=== PATIENT | male | born 1940 | race Caucasian/White ===

== ENCOUNTER 2024-09-19 08:37 | Day surgery (SDC) | payer MEDICARE, BC, SELFPAY ==
[2024-09-19] VITALS (14 sets, daily range): BP systolic 145–181; BP diastolic 62–92; BMI 25.8
[2024-09-19 09:39] LABS: ALT (SGPT) 42 U/L (0-50); AST (SGOT) 39 U/L (17-59); Albumin 4.4 g/dl (3.5-5.0); Alkaline Phosphatase 76 U/L (38-126); Blood Urea Nitrogen 34 mg/dl (9-20); Calcium 9.4 mg/dl (8.4-10.2); Carbon Dioxide 28 mmol/L (22-30); Chloride 104 mmol/L (98-107); Glucose 135 mg/dl (70-99); Sodium 141 mmol/L (135-145); Total Bilirubin 0.9 mg/dl (0.2-1.3); Total Protein 7.1 g/dl (6.3-8.2); eGFR 49.87
[2024-09-19 10:01] LABS: Glucose - Point of Care 127 mg/dl (70-99)
[2024-09-19 10:16] LABS: Hematocrit 38.1 % (39.0-52.0); Hemoglobin 12.6 g/dL (13.0-18.0); Mean Corp Hgb Conc. 33.1 g/dL (33.0-37.0); Mean Corpuscular Hgb 30.9 pg (27.0-31.0); Mean Corpuscular Volume 93.4 fL (80.0-94.0); Red Blood Cell Count 4.08 10^6/uL (4.70-6.10); Red Cell Dist. Width 12.2 % (11.5-14.5); White Blood Cell Count 9.6 10^3/uL (4.8-10.8)
[2024-09-19 13:20] LABS: ACT-LR - POC 356 Seconds (116-155)
--- NOTE | 2024-09-19 13:25 | ITS.CL.CATH ---
[facility] - Catheterization
Cardiac Catheterization
Procedure Report:
CARDIAC CATHETERIZATION REPORT
Date of Procedure: 09/19/2024
Referring: Kimberly Perez M.D.
INDICATION: Known coronary artery disease, episode of chest pain, abnormal stress test.
PROCEDURE:
1. Left heart catheterization.
2. Coronary angiography.
3. Successful IFR of the ostial circumflex.
ACCESS:
6 Australian right radial artery artery.
CATHETERS:
1. 5 Australian JR4.
2. 5 Australian JL 3.5.
3. 6 Australian EBU 3.5 guiding catheter.
HEMODYNAMIC DATA
Weight (kg): 74.7
AO (s/d/x, mmHg): 137/61/92
LV (s/x mmHg): 140/6
LEFT VENTRICULOGRAPHY: Not performed.
CORONARY ANGIOGRAPHY
Dominance: Right.
Left Main: Normal size, bifurcating vessel. There is very mild tapering of the distal vessel.
LAD: Normal size vessel giving rise to 1 large diagonal. Patent stents are visible in the proximal and mid LAD with approximately 10-20% in-stent restenosis. There is a 40% lesion distal to the stented segment.
Ramus: Congenitally absent.
Circumflex: Normal size, nondominant vessel that gives rise to 1 obtuse marginal very high on the circumflex. There is a 70% lesion in the ostium of the circumflex. This leads into an 80% lesion of the proximal margin of the AV groove
circumflex, a small vessel supplying only the lateral base. There is extension of the circumflex lesion into the obtuse marginal as a 50-60% lesion.
RCA: Enormous, dominant vessel with a large posterolateral arcade that supplies the entire inferior and inferolateral wall. There are minor luminal irregularities throughout.
INTERVENTION(S)
1. Successful IFR of the 70% ostial circumflex lesion into the OM1, demonstrating nonocclusive disease (IFR = 0.93).
Narrative:
The decision was made to perform physiologic testing. The diagnostic catheter was removed over a wire and exchanged for a(n) 6 [place] EBU 3.5 guiding catheter. The guiding catheter was advanced into the ascending aorta and seated in the left main
coronary artery. Additional heparin was given to obtain an ACT greater than 250 seconds. An iFR wire was zeroed outside of the body, then inserted into the guiding sheath. The wire was advanced and the transducer was normalized just outside of the
guiding catheter tip. The wire was advanced into the mid OM1, beyond the ostial circumflex and proximal OM1 lesion. Three iFR measurements were taken. The lesion was determined to be nonocclusive (0.93).
Closure Device: Vascular band.
Radiation (mGy): 35.2451
DAP (cm2.Gy): 450.08
Fluoroscopy time (minutes): 7.2
Sedation time (minutes): 41
CONCLUSIONS
1. Right dominant circulation with an enormous right coronary artery supplying the entire inferior and inferolateral wall, patent stents in the LAD with 10-20% in-stent restenosis and a 40% LAD lesion distal to the stented segment, a nondominant
circumflex with 1 obtuse marginal arising very high off of the AV groove vessel with a 70% lesion in the ostium of the circumflex leading into a 90% lesion in the small AV groove vessel and a 50-60% lesion in OM1.
2. Successful IFR of the 70% ostial circumflex/50-60% OM1 lesion, demonstrating nonocclusive disease (IFR = 0.93).
3. Normal filling pressures (LVEDP = 6 mmHg at 74.7 kg).
RECOMMENDATIONS:
1. Expectant management after cardiac catheterization via right radial approach.
2. Limited weight bearing on the right wrist for one week.
3. Continue aggressive secondary prevention with clopidogrel, carvedilol, nifedipine.
4. Increase atorvastatin to 40 mg daily. Goal LDL <55.
5. No obvious culprit for episode of chest pain.
6. Stable for outpatient follow-up with [facility].
Copy to: Kimberly Perez M.D., Yosvany Bell D.O.
Phil Monte DO, FACC, FACP
[2024-09-19 14:07] LABS: Glucose - Point of Care 93 mg/dl (70-99)
== END 2024-09-19 17:00 | disposition home or self-care (01) ==
LOC: CATH 08:37
PROVIDERS: ATTENDING PHYSICIAN Internal Medicine Cardiovascular Disease; FAMILY PHYSICIAN Internal Medicine; OTHER PHYSICIAN Internal Medicine Cardiovascular Disease
DX: I25.10 Atherosclerotic heart disease of native coronary artery without angina pectoris (principal); Z95.5 Presence of coronary angioplasty implant and graft; Z79.82 Long term (current) use of aspirin; Z79.02 Long term (current) use of antithrombotics/antiplatelets; Z79.899 Other long term (current) drug therapy; Z79.84 Long term (current) use of oral hypoglycemic drugs; T82.855A Stenosis of coronary artery stent, initial encounter; Y83.2 Surgical operation with anastomosis, bypass or graft as the cause of abnormal reaction of the patient, or of later complication, without mention of misadventure at the time of the procedure
CPT/HCPCS: 93799; 80053; 82962; 85027; 85347; 93458; C1769; C1894; Q9967